=== PATIENT | male | born 1980 | race American Indian/Alaskan Native ===

== ENCOUNTER 2018-12-05 15:29 | Emergency (ER) | payer OTHER ==
[2018-12-05 15:35] VITALS: BP 122/72
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
--- NOTE | 2018-12-05 16:25 | XRay Report ---
XR SHOULDER 2+V RT CLINICAL INDICATION: Male, 38 years of age. rt shoulder pain s/p fall. COMPARISON: None. FINDINGS: 3 views right shoulder obtained. Bony structures are intact. Joint spaces are maintained. No acute fracture or dislocation. IMPRESSION: No acute bony abnormality. This document is electronically signed by Umesh Red DO., December 05 2018 04:22:59 PM ET
[2018-12-05] MEDS ORDERED: IBUPROFEN PO ONE (17:30)
[2018-12-05] MEDS ORDERED: BOOSTRIX IM ONE (17:38)
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
== END 2018-12-05 18:09 | disposition home or self-care (01) ==
LOC: ED 15:29
DX: S46.911A Strain of unspecified muscle, fascia and tendon at shoulder and upper arm level, right arm, initial encounter (principal); F17.200 Nicotine dependence, unspecified, uncomplicated; F12.10 Cannabis abuse, uncomplicated; Z91.018 Allergy to other foods; W19.XXXA Unspecified fall, initial encounter; Y93.89 Activity, other specified; Y92.410 Unspecified street and highway as the place of occurrence of the external cause; Y99.8 Other external cause status
CPT/HCPCS: 90471; 90715